=== PATIENT | male | born 1960 | race Caucasian/White ===

== ENCOUNTER 2020-01-03 19:58 | Inpatient (IN) | payer MEDICARE, MEDICAID ==
[~2020-01-03] VITALS: Ht 190.5 cm; Wt 85.3 kg
[~2020-01-03 19:58] MED LIST: ALBU6.7H11 IH; AMLO10TA4 PO; ASPI-986 PO; ASPI325T85 PO; ATOR20TA PO; B50 GT; COR25 PO; COREG PO; FURO-151 PO; HYDR2TAB4 PO; ISOS40TA17 PO; LASIX PO; LIPITOR PO; NITR0.4T49 SL; NITRO PATCH TD; NORVASC PO; POTA20TA82 PO; POTASSIUM PO; RANO10003 PO
[2020-01-03 20:56] LABS: BASOPHILS % 0.6 % (0.0-2.0); HEMATOCRIT. 31.5 % (42.0-52.0); HEMOGLOBIN. 10.6 g/dL (14.0-18.0); LYMPHOCYTES % 9.6 % (20.0-50.0); MEAN CORPUSCULAR HEMOGLOBIN 29.5 pg (28.0-32.0); MEAN CORPUSCULAR VOLUME 87.4 fL (80.0-94.0); MEAN PLATELET VOLUME 7.3 fl (7.4-10.4); MONOCYTES % 9.1 % (2.0-8.0); NEUTROPHILS % 80.7 % (40.0-76.0); PLATELET 93 x1000/uL (130-400); RED CELL DISTRIBUTION WIDTH 21.5 % (11.6-14.6)
[2020-01-03] MEDS ORDERED: NITROGLYCERIN 0.4MG TABLET SL SL ONE (21:00)
[2020-01-03] MEDS ORDERED: MORPHINE SULFATE 4 MG/ML CPJ (NOT FOR IM USE) IV ONE (21:00)
[2020-01-03] MEDS ORDERED: FUROSEMIDE 40MG/4ML VIAL IVP ONE (21:00)
[2020-01-03 21:03] LABS: CHLORIDE 109 mEq/L (98-107)
[2020-01-03] MEDS ORDERED: TRAMADOL 50MG TABLET PO PRN (22:30)
[2020-01-03] MEDS ORDERED: MAGNESIUM/ALUMINUM HYDROXIDE/SIMETHICONE 30ML UDC PO PRN (22:30)
[2020-01-03] MEDS ORDERED: ZOLPIDEM TARTRATE 5MG TABLET PO PRN (22:30)
[2020-01-03] MEDS ORDERED: KETOROLAC 15MG/ML VIAL IV PRN (22:30)
[2020-01-03] MEDS ORDERED: DOCUSATE SODIUM 100MG CAPSULE PO PRN (22:30)
[2020-01-03] MEDS ORDERED: CLONIDINE 0.1MG TABLET PO PRN (22:30)
[2020-01-03] MEDS ORDERED: ACETAMINOPHEN 325MG TABLET PO PRN ×2 (22:30)
[2020-01-03] MEDS ORDERED: NITROGLYCERIN 0.4MG TABLET SL SL PRN (22:30)
[2020-01-03] MEDS ORDERED: ONDANSETRON HCL 4MG/2ML INJ IV PRN (22:30)
[2020-01-03] MEDS ORDERED: GUAIFENESIN 200MG/10ML SUGAR FREE UDC PO PRN (22:30)
[2020-01-03] MEDS ORDERED: ENOXAPARIN 40MG/0.4ML SYR SUBCUT SCH (22:30)
[2020-01-03] MEDS ORDERED: IPRATROPIUM/ALBUTEROL 0.5-3(2.5)MG/3ML NEB NEB PRN (22:30)
[2020-01-03 23:11] LABS: FOLIC ACID (FOLATE) SERUM 9.7 ng/mL (>5.38)
[2020-01-04 01:30] VITALS: BP 117/64
[2020-01-04 01:47] LABS: *AMPHETAMINES SCREEN URINE NEGATIVE (NEGATIVE); *BARBITURATES SCREEN URINE NEGATIVE (NEGATIVE); *BENZODIAZEPINES SCREEN URINE NEGATIVE (NEGATIVE); *COCAINE SCREEN URINE NEGATIVE (NEGATIVE); CANNABINOID URINE SCREEN NEGATIVE (NEGATIVE); METHADONE URINE SCREEN NEGATIVE (NEGATIVE); OPIATES URINE SCREEN PRESUMTIVE POSITIVE (NEGATIVE); PHENCYCLIDINE URINE SCREEN NEGATIVE (NEGATIVE)
[2020-01-04] MEDS ORDERED: NITR1OIN TD (02:46)
[2020-01-04 04:00] VITALS: BP 121/52
[2020-01-04 06:15] LABS: CREATINE KINASE MB FRACTION 3.1 ng/mL (0.5-3.6)
[2020-01-04 08:00] VITALS: BP 95/45
[2020-01-04] MEDS: SPIRONOLACTONE 25MG TABLET PO SCH ×2 (08:38→21:47)
[2020-01-04] MEDS: ASPIRIN 325MG EC TABLET PO SCH (08:48)
[2020-01-04] MEDS: FUROSEMIDE 40MG/4ML VIAL IVP SCH ×2 (08:48→21:46)
[2020-01-04] MEDS: GUAIFENESIN/DM 600MG/30MG ER TAB 12HR PO SCH ×2 (08:48→21:47)
[2020-01-04] MEDS: FAMOTIDINE 20MG TABLET PO SCH ×2 (08:48→21:47)
[2020-01-04] MEDS: ZINC SULFATE 220 MG ( 50 ) CAPSULE PO SCH (08:48)
[2020-01-04] MEDS: ASCORBIC ACID 500 MG TABLET PO SCH ×2 (08:48→21:47)
[2020-01-04] MEDS ORDERED: ENOXAPARIN 30MG/0.3ML SYR SUBCUT SCH (09:00)
[2020-01-04 12:26] VITALS: BP 95/45
[2020-01-04 16:00] VITALS: BP 98/45
[2020-01-04 16:00] LABS: CREATINE KINASE MB FRACTION 3.6 ng/mL (0.5-3.6)
[2020-01-04] MEDS: ENOXAPARIN 40MG/0.4ML SYR SUBCUT SCH (16:00)
[2020-01-04 20:00] VITALS: BP 101/44
[2020-01-05] VITALS: BP 106/48
[2020-01-05 04:00] VITALS: BP 91/40
[2020-01-05 07:17] LABS: BASOPHILS % 0.8 % (0.0-2.0); HEMATOCRIT. 32.4 % (42.0-52.0); HEMOGLOBIN. 10.8 g/dL (14.0-18.0); LYMPHOCYTES % 13.3 % (20.0-50.0); MEAN CORPUSCULAR HEMOGLOBIN 29.3 pg (28.0-32.0); MEAN CORPUSCULAR VOLUME 87.6 fL (80.0-94.0); MEAN PLATELET VOLUME 8.4 fl (7.4-10.4); MONOCYTES % 10.4 % (2.0-8.0); NEUTROPHILS % 75.5 % (40.0-76.0); PLATELET 88 x1000/uL (130-400); RED BLOOD CELL COUNT 3.69 mill/uL (4.7-6.1); RED CELL DISTRIBUTION WIDTH 21.8 % (11.6-14.6)
[2020-01-05 07:31] LABS: CHLORIDE 107 mEq/L (98-107)
[2020-01-05 08:00] VITALS: BP 112/64
[2020-01-05] MEDS: ZINC SULFATE 220 MG ( 50 ) CAPSULE PO SCH (09:45)
[2020-01-05] MEDS: ASPIRIN 325MG EC TABLET PO SCH (09:45)
[2020-01-05] MEDS: GUAIFENESIN/DM 600MG/30MG ER TAB 12HR PO SCH ×2 (09:45→21:56)
[2020-01-05] MEDS: FAMOTIDINE 20MG TABLET PO SCH ×2 (09:45→21:56)
[2020-01-05] MEDS: FUROSEMIDE 40MG/4ML VIAL IVP SCH ×2 (09:46→21:57)
[2020-01-05] MEDS: SPIRONOLACTONE 25MG TABLET PO SCH ×2 (09:46→21:57)
[2020-01-05 12:00] VITALS: BP 116/47
[2020-01-05] MEDS: ASCORBIC ACID 500 MG TABLET PO SCH ×2 (14:39→21:56)
[2020-01-05 16:00] VITALS: BP 130/76
[2020-01-05] MEDS: ENOXAPARIN 40MG/0.4ML SYR SUBCUT SCH (18:47)
[2020-01-05 20:00] VITALS: BP 106/53
[2020-01-06] VITALS: BP 100/44
[2020-01-06 04:00] VITALS: BP 91/48
[2020-01-06 07:01] LABS: CHLORIDE 105 mEq/L (98-107)
[2020-01-06 07:27] LABS: BASOPHILS % 0.6 % (0.0-2.0); HEMATOCRIT. 33.3 % (42.0-52.0); HEMOGLOBIN. 11.1 g/dL (14.0-18.0); LYMPHOCYTES % 13.8 % (20.0-50.0); MEAN CORPUSCULAR HEMOGLOBIN 28.9 pg (28.0-32.0); MEAN CORPUSCULAR VOLUME 86.6 fL (80.0-94.0); MEAN PLATELET VOLUME 7.4 fl (7.4-10.4); MONOCYTES % 10.4 % (2.0-8.0); NEUTROPHILS % 75.2 % (40.0-76.0); PHOSPHORUS 4.1 mg/dL (2.5-4.9); PLATELET 92 x1000/uL (130-400); RED BLOOD CELL COUNT 3.85 mill/uL (4.7-6.1)
[2020-01-06 08:00] VITALS: BP 98/45
[2020-01-06] MEDS: SPIRONOLACTONE 25MG TABLET PO SCH (09:00)
[2020-01-06] MEDS: ASPIRIN 325MG EC TABLET PO SCH (09:32)
[2020-01-06] MEDS: GUAIFENESIN/DM 600MG/30MG ER TAB 12HR PO SCH (09:32)
[2020-01-06] MEDS: ZINC SULFATE 220 MG ( 50 ) CAPSULE PO SCH (09:32)
[2020-01-06] MEDS: ASCORBIC ACID 500 MG TABLET PO SCH (09:32)
[2020-01-06] MEDS: FAMOTIDINE 20MG TABLET PO SCH (09:32)
[2020-01-06] MEDS: FUROSEMIDE 40MG/4ML VIAL IVP SCH (09:34)
[2020-01-06 12:00] VITALS: BP 105/55
[2020-01-06 14:29] VITALS: BP 110/67
[2020-01-06 15:33] VITALS: BP 110/67
[2020-01-06] MEDS: ENOXAPARIN 40MG/0.4ML SYR SUBCUT SCH (16:00)
== END 2020-01-06 17:10 | disposition home health service (06) | DRG 194 ==
LOC: ER 19:58 → 5WST 21:13 → CANRESERV 22:20 → ENRESERV 22:20 → SUPCPDRO 22:27 → EDBEDREQSVC 23:02 → ENRESERV 23:44
PROVIDERS: ADMIT Internal Medicine; ATTEND Internal Medicine
DX: I11.0 Hypertensive heart disease with heart failure (principal); I50.43 Acute on chronic combined systolic (congestive) and diastolic (congestive) heart failure; M94.0 Chondrocostal junction syndrome [Tietze]; D63.8 Anemia in other chronic diseases classified elsewhere; E78.00 Pure hypercholesterolemia, unspecified; I25.10 Atherosclerotic heart disease of native coronary artery without angina pectoris; I24.9 Acute ischemic heart disease, unspecified; Z95.1 Presence of aortocoronary bypass graft; Z95.2 Presence of prosthetic heart valve; Z88.8 Allergy status to other drugs, medicaments and biological substances; Z79.82 Long term (current) use of aspirin; Z79.899 Other long term (current) drug therapy; I25.2 Old myocardial infarction
CPT/HCPCS: 36415; 71045; 80048; 80053; 80061; 80305; 82550; 82553; 82607; 82746; 83036; 83540; 83550; 83735; 83880; 84100; 84484; 85025; 93005; 93306; 96374; 99285; J1650; J1940; J2270

== ENCOUNTER 2020-10-08 19:07 | Emergency (ER) | payer MEDICAID, MEDICARE ==
[~2020-10-08] VITALS: Ht 190.5 cm; Wt 102.0 kg
[~2020-10-08 19:07] MED LIST changes: -ALBU6.7H11 IH; +ASPI-867 PO; -ASPI325T85 PO; +NITR1OIN TD
[2020-10-08 19:13] VITALS: BP 145/86
[2020-10-08 19:50] LABS: BASOPHILS % 0.5 % (0.0-2.0); EOSINOPHILS % 1.5 % (0.0-5.0); HEMATOCRIT. 35.7 % (42.0-52.0); HEMOGLOBIN. 12.1 g/dL (14.0-18.0); MEAN CORPUSCULAR HEMOGLOBIN 30.5 pg (28.0-32.0); MEAN CORPUSCULAR VOLUME 89.6 fL (80.0-94.0); MEAN PLATELET VOLUME 7.7 fl (7.4-10.4); MONOCYTES % 11.1 % (2.0-8.0); NEUTROPHILS % 71.9 % (40.0-76.0); PLATELET 128 x1000/uL (130-400); RED BLOOD CELL COUNT 3.98 mill/uL (4.7-6.1); RED CELL DISTRIBUTION WIDTH 16.7 % (11.6-14.6)
[2020-10-08 19:59] LABS: PROTHROMBIN TIME 10.4 sec (9.6-11.0)
[2020-10-08 20:06] LABS: CHLORIDE 102 mEq/L (98-107)
== END 2020-10-08 20:42 | disposition left against medical advice (07) ==
LOC: ER 19:07
DX: R06.02 Shortness of breath (principal); R07.9 Chest pain, unspecified; R06.82 Tachypnea, not elsewhere classified; Z53.21 Procedure and treatment not carried out due to patient leaving prior to being seen by health care provider
CPT/HCPCS: 36415; 80053; 83880; 84484; 85025; 93005